=== PATIENT | female | born 1980 | race Caucasian/White ===

== ENCOUNTER 2023-07-06 12:55 | Emergency (ER) | payer SELFPAY ==
[2023-07-06 13:06] VITALS: BP 126/0
[2023-07-06 13:13] LABS: Glucose - Point of Care 100 mg/dl (70-99)
--- NOTE | 2023-07-06 13:39 | ED.GENMED ---
History of Present Illness
<Clive Dahl PA-C - Last Filed: 07/07/23 09:38>
General
Chief Complaint: Crisis Evaluation
Time Seen by Provider: 07/06/23 13:31
Travel History
Have you had any contact with someone who has COVID-19?: No
Do you have any symptoms of coronavirus? Fever > 100 degrees, chills, cough, shortness of breath, sore throat, loss of taste or smell, muscle aches, or headache?: No
History of Present Illness
History of Present Illness:
42-year-old female presents to the emergency department due to suicidal ideation. She reports that she has not eaten or had much to drink in the past 3 weeks. She reports that she attempted to commit suicide by overdosing on Seroquel several weeks
ago, states that today she tried to cut herself with a 'knife from [facility]' however did not break the skin. She is hopeful to sign herself in for inpatient treatment. She reports general fatigue and malaise and has not slept well for
several days.
Review of Systems
<Clive Dahl PA-C - Last Filed: 07/07/23 09:38>
Review of Systems
Allergies reviewed?: Yes
All Other Systems: ROS reviewed and negative except as documented in HPI and ROS
Phy Exam
<Clive Dahl PA-C - Last Filed: 07/07/23 09:38>
Physical Exam
Physical Exam:
GEN: Well appearing, NAD, WDWN
HEENT: Oral mucosa moist, no scleral icterus
Cardiac: Regular rate and rhythm
Lung: No respiratory distress, no tachypnea
MSK: No gross deformity or injuries
Skin: Good color, no pallor or jaundice, no rashes. No open wound to site of reported suicide attempt
Neuro: AO x3, moves all extremities freely
Psych: Calm, cooperative
Course
<Clive Dahl PA-C - Last Filed: 07/07/23 09:38>
Orders/Labs/Results
Orders:
Orders
07/06/23 13:36
Crisis Consult Urgent
Reason for Consult: suicidal ideation
Comment: [phone]
Test Result ONCE
07/06/23 14:19
Alcohol Urgent
COVID-19 Antigen Urgent
Source: Nasal Swab
Complete Blood Count/With Diff Urgent
Comprehensive Metabolic Panel Urgent
HCG, Serum Qualitative Screen Urgent
Keppra (Levetiracetam) [S] Urgent
07/06/23 17:32
Lorazepam [Ativan] 1 mg PO NOW STA
07/06/23 20:34
Fentanyl, Urine Urgent
Urinalysis Reflex To Culture Urgent
Date Specimen was Collected: 07/06/23
Time Specimen was Collected: 20:27
Urine Drug Abuse Screen Urgent
Date Specimen was Collected: 07/06/23
Time Specimen was Collected: 20:27
Urine Microscopic Reflex Cult Urgent
07/06/23 21:29
Lorazepam [Ativan] 1 mg PO NOW STA
07/07/23 00:17
Levetiracetam [Keppra] 1,500 mg .ROUTE .STK-MED ONE
07/07/23 00:20
Levetiracetam [Keppra] 1,500 mg PO NOW STA
07/07/23 00:48
Quetiapine Fumarate [Seroquel] 25 mg PO NOW STA
Abnormal Lab Results
07/06/23 07/06/23 07/06/23
13:12 14:19 20:34
Absolute Neuts (auto) 7.2 H 10^3/uL
(1.4-6.5)
Urine Ketones 3+ A
(Negative)
Ur Occult Blood Reflex 4+ A
(Negative)
Urine Bilirubin 1+ A
(Negative)
Urine RBC 7-10 A /HPF
(0-2)
U Benzodiazepines Scrn Positive H
(Negative)
POC Glucose 100 H mg/dl
(70-99)
07/06/23 14:19
07/06/23 14:19
Vital Signs
Initial and Last Documented VS:
Initial Vital Signs
Temp Pulse Resp BP Pulse Ox
97.9 F 78 20 126/0 100
07/06/23 13:06 07/06/23 13:06 07/06/23 13:06 07/06/23 13:06 07/06/23 13:06
Last Documented Vital Signs
Temp Pulse Resp BP Pulse Ox
97.6 F 76 20 103/73 98
07/07/23 00:26 07/07/23 00:26 07/07/23 00:26 07/07/23 00:26 07/07/23 00:26
<Gunnar Murray PA-C - Last Filed: 07/06/23 22:22>
Orders/Labs/Results
Orders:
Orders
07/06/23 13:36
Crisis Consult Urgent
Reason for Consult: suicidal ideation
Comment: [phone]
Test Result ONCE
07/06/23 14:19
Alcohol Urgent
COVID-19 Antigen Urgent
Source: Nasal Swab
Complete Blood Count/With Diff Urgent
Comprehensive Metabolic Panel Urgent
HCG, Serum Qualitative Screen Urgent
Keppra (Levetiracetam) [S] Urgent
07/06/23 17:32
Lorazepam [Ativan] 1 mg PO NOW STA
07/06/23 20:34
Fentanyl, Urine Urgent
Urinalysis Reflex To Culture Urgent
Date Specimen was Collected: 07/06/23
Time Specimen was Collected: 20:27
Urine Drug Abuse Screen Urgent
Date Specimen was Collected: 07/06/23
Time Specimen was Collected: 20:27
Urine Microscopic Reflex Cult Urgent
07/06/23 21:29
Lorazepam [Ativan] 1 mg PO NOW STA
07/07/23 00:17
Levetiracetam [Keppra] 1,500 mg .ROUTE .STK-MED ONE
07/07/23 00:20
Levetiracetam [Keppra] 1,500 mg PO NOW STA
07/07/23 00:48
Quetiapine Fumarate [Seroquel] 25 mg PO NOW STA
Abnormal Lab Results
07/06/23 07/06/23 07/06/23
13:12 14:19 20:34
Absolute Neuts (auto) 7.2 H 10^3/uL
(1.4-6.5)
Urine Ketones 3+ A
(Negative)
Ur Occult Blood Reflex 4+ A
(Negative)
Urine Bilirubin 1+ A
(Negative)
Urine RBC 7-10 A /HPF
(0-2)
U Benzodiazepines Scrn Positive H
(Negative)
POC Glucose 100 H mg/dl
(70-99)
07/06/23 14:19
07/06/23 14:19
Vital Signs
Initial and Last Documented VS:
Initial Vital Signs
Temp Pulse Resp BP Pulse Ox
97.9 F 78 20 126/0 100
07/06/23 13:06 07/06/23 13:06 07/06/23 13:06 07/06/23 13:06 07/06/23 13:06
Last Documented Vital Signs
Temp Pulse Resp BP Pulse Ox
97.6 F 76 20 103/73 98
07/07/23 00:26 07/07/23 00:26 07/07/23 00:26 07/07/23 00:26 07/07/23 00:26
<Clive Dahl PA-C - Last Filed: 07/07/23 09:38>
MDM/Problems Addressed
MDM/Problems Addressed:
Labs obtained for medical clearance particular given the failure to thrive over the past several weeks. Patient is a voluntary psychiatric admission, appears to be reliable, given her multiple reported suicide attempts would be recommended to be
302 did should she attempt to sign herself out. Will sign out to Leobardo Murray PA-C pending labs and crisis eval
<Clive Dahl PA-C - Last Filed: 07/07/23 09:38>
*Critical Care Note
Total Time (30-74mins, 75-104mins- exclusive of procedures): Not Applicable
<Gunnar Murray PA-C - Last Filed: 07/06/23 22:22>
Update Note
Update Note:
Assumed care of patient pending workup. Patient is here voluntarily for suicidal ideation and intent to harm herself. Medical workup without significant finding. Discussed findings with crisis department who prefers to stay the crisis room
secondary to intent to harm herself. They are actively searching for inpatient psychiatric bed. Medically clear for psychiatric disposition
ED Attending Note
<Clive Dahl PA-C - Last Filed: 07/07/23 09:38>
-
Portions of this chart may have been created with voice recognition software.� Occasional wrong word or��sound alike� substitutions may have occurred due to the inherent limitations of voice recognition software.
Discharge Plan
Departure
Patient Disposition: Psych Facility
Date of Disposition: 07/06/23
Time of Disposition: 22:22
Discharge Problem:
Suicidal ideations, Adult failure to thrive
Referrals:
NONE,* [Family Provider] -
Interventions
Interventions:
*General Assessment Last Done: 07/06/23 14:00
*Neglect/Abuse Screening Last Done: 07/06/23 14:00
*ED COVID-19 Vaccine History Last Done: 07/06/23 14:00
ED-Psychological Assessment Last Done: 07/06/23 14:00
[2023-07-06 15:18] LABS: % Basophils 0.6 % (0-2); % Eosinophils 1.9 % (0-6); % Immature Granulocytes 0.3 % (0-0.5); % Lymphocytes 22.2 % (20.5-51.1); % Monocytes 5.8 % (1.7-9.3); % Neutrophils 69.2 % (42.2-75.2); Absolute Basophils 0.1 10^3/uL (0-0.2); Absolute Eosinophils 0.2 10^3/uL (0-0.7); Absolute Lymphocytes 2.3 10^3/uL (1.2-3.4); Absolute Monocytes 0.6 10^3/uL (0.1-0.6); Absolute Neutrophils 7.2 10^3/uL (1.4-6.5); Hematocrit 41.6 % (37.0-47.0); Hemoglobin 14.5 g/dL (12.0-16.0); Mean Corp Hgb Conc. 34.9 g/dL (33.0-37.0); Mean Corpuscular Hgb 29.2 pg (27.0-31.0); Mean Corpuscular Volume 83.7 fL (81.0-99.0); Nucleated Red Blood Cells % 0 %; Platelet Count 249 10^3/uL (130-400); Red Blood Cell Count 4.97 10^6/uL (4.20-5.40); Red Cell Dist. Width 12.6 % (11.5-14.5); White Blood Cell Count 10.4 10^3/uL (4.8-10.8)
[2023-07-06 15:25] LABS: HCG, Serum Qualitative Screen Negative
[2023-07-06 15:28] VITALS: BP 124/78
[2023-07-06 15:29] LABS: ALT (SGPT) 28 U/L (0-35); AST (SGOT) 27 U/L (14-36); Albumin 4.4 g/dl (3.5-5.0); Alkaline Phosphatase 98 U/L (38-126); Blood Urea Nitrogen 15 mg/dl (7-17); Calcium 9.2 mg/dl (8.4-10.2); Carbon Dioxide 23 mmol/L (22-30); Chloride 105 mmol/L (98-107); Glucose 94 mg/dl (70-99); Potassium 4.3 mmol/L (3.5-5.1); Sodium 136 mmol/L (135-145); Total Bilirubin 0.8 mg/dl (0.2-1.3); Total Protein 7.7 g/dl (6.3-8.2); eGFR > 60.00
[2023-07-06 15:31] LABS: Alcohol None Detected
[2023-07-06 16:05] LABS: COVID-19 Antigen Negative (Negative)
[2023-07-06] MEDS: ATIVAN 1 MG PO (17:35)
[2023-07-06 20:41] LABS: Urine Albumin Trace (Neg - Trace); Urine Bilirubin 1+ (Negative); Urine Character Clear (Clear); Urine Color Yellow; Urine Glucose Negative (Negative); Urine Ketone 3+ (Negative); Urine Leukocyte Negative (Negative); Urine Nitrite Negative (Negative); Urine Occult Blood 4+ (Negative); Urine Specific Gravity 1.025 (<1.030); Urine Urobilinogen Negative (Neg - 1+)
[2023-07-06 20:53] LABS: Urine White Cell None Seen /HPF (0-5)
[2023-07-06 20:54] LABS: Amphetamines Negative (Negative); Barbiturates Negative (Negative); Benzodiazepines Positive (Negative); Buprenorphine Negative (Negative); Cocaine Negative (Negative); Marijuana Negative (Negative); Methadone Negative (Negative); Methamphetamines Negative (Negative); Opiates Negative (Negative); Phencyclidine Negative (Negative); Tricyclic Antidepressants Negative (Negative)
[2023-07-06 21:14] LABS: Fentanyl, Urine Negative (Negative)
[2023-07-07] MEDS: KEPPRA 1500 MG PO (00:21)
[2023-07-07 00:26] VITALS: BP 103/73
[2023-07-07 00:27] VITALS: BMI 23.2
--- NOTE | 2023-07-07 00:49 | ED.CRISIS ---
ED Crisis Note
ED Crisis Note
Subjective:
42-year-old female with suicidal ideation, requesting Seroquel to help her sleep and given Keppra for her seizure disorder.
Objective:
42-year-old female in no acute distress
Assessment/Plan:
42-year-old female with suicidal ideation, await disposition by crisis.
[2023-07-07] MEDS: SEROQUEL 25 MG PO (00:51)
[2023-07-07] MEDS: ATIVAN 1 MG PO (10:39)
[2023-07-07 10:47] VITALS: BP 124/73
[2023-07-08 19:23] LABS: Keppra (Levetiracetam) 23 ug/mL (10-40)
== END 2023-07-07 12:19 ==
LOC: EMR 12:55
PROVIDERS: Physician Assistant; EMERGENCY PHYSICIAN Emergency Medicine
DX: R45.851 Suicidal ideations (principal); R62.7 Adult failure to thrive; G40.909 Epilepsy, unspecified, not intractable, without status epilepticus; Z79.899 Other long term (current) drug therapy
CPT/HCPCS: 99285; 80053; 80177; 80306; 80307; 81003; 81015; 82077; 82962; 84703; 85025; 87811